=== PATIENT | male | born 1975 | race Caucasian/White ===

== ENCOUNTER 2017-07-10 16:02 | Emergency (ER) | payer SELFPAY ==
[2017-07-10 16:40] LABS: #Basophils 0.1 thou/uL (0.0-0.2); #Lymphocytes 1.2 thou/uL (1.20-3.40); #Monocytes 0.4 thou/uL (0.11-0.59); #Neutrophils 3.2 thou/uL (1.40-6.50); %Basophils 1.1 % (0.0-1.0); %Eosinophils 0.8 % (0.0-10.0); %Lymphocytes 25.2 % (21.0-51.0); %Monocytes 8.3 % (0.0-10.0); Hematocrit 46.1 % (42.0-52.0); Mean Platelet Volume 6.7 fL (7.4-10.4); Red Blood Cell (RBC) Count 4.07 mill/uL (4.70-6.10); White Blood Cell (WBC) Count 4.9 thou/uL (4.8-10.8)
[2017-07-10 16:52] LABS: Acetaminophen Less than 6.0 mcg/mL (10.0-30.0); CK (CPK) 63 U/L (30-200); Salicylate Less than 8.0 mg/dL (15.0-30.0)
[2017-07-10 16:53] LABS: Macrocytosis SLIGHT = 6-15 cells (100X) (0-5/hpf)
[2017-07-10 16:54] LABS: ALT (SGPT) 11 U/L (8-55); AST (SGOT) 18 U/L (5-34); Alkaline Phosphatase 77 U/L (40-150); Anion Gap 17 mmol/L (10-20); BUN (Urea Nitrogen) 8 mg/dL (8.9-20.6); Bilirubin, Total 0.8 mg/dL (0.2-1.2); Calc. Creatinine Clearance 0 mL/min (70-130); Calcium 9.1 mg/dL (7.8-10.44); Carbon Dioxide 22 mmol/L (22-29); Chloride 107 mmol/L (98-107); Estimated GFR-MDRD Greater than 90; Globulin 2.5 g/dL (2.4-3.5); Protein, Total 6.8 g/dL (6.0-8.3)
--- NOTE | 2017-07-10 17:46 | CT ---
CT HEAD NONCONTRAST: Date: 07/10/17 INDICATION: AMS. FINDINGS: No intracranial hemorrhage, mass effect, midline shift, or ventriculomegaly. There is mild mucosal t hickening of the paranasal sinuses. IMPRESSION: No acute intracranial hemorrhage or mass effect. POS: ANETA
[2017-07-10 18:14] LABS: Bilirubin Negative (Negative); Blood, Urine Negative (Negative); Glucose, Urine (Dipstick) Negative (Negative); Ketone, Urine Negative (Negative); Nitrite Negative (Negative); Protein, Urine (Dipstick) Negative (Neg-Trace)
[2017-07-10 18:24] LABS: Amphetamine Not Detected (NotDetected); Methadone Not Detected (NotDetected); Methamphetamine Not Detected (NotDetected)
== END 2017-07-10 19:16 | disposition home or self-care (01) ==
LOC: ERS 16:02
DX: F10.10 Alcohol abuse, uncomplicated (principal); R41.82 Altered mental status, unspecified; F17.210 Nicotine dependence, cigarettes, uncomplicated
CPT/HCPCS: 36415; 36416; 70450; 80053; 80306; 80307; 81003; 82550; 85025; 94760; 96360

== ENCOUNTER 2018-10-30 15:12 | Emergency (ER) | payer OTHER, SELFPAY ==
[2018-10-30] MEDS ORDERED: Acetaminophen 325 MG TAB ONE (17:04)
== END 2018-10-30 17:55 | disposition home or self-care (01) ==
LOC: ERS 15:12
DX: K03.81 Cracked tooth (principal); K02.9 Dental caries, unspecified; Z71.6 Tobacco abuse counseling; F17.210 Nicotine dependence, cigarettes, uncomplicated; G47.30 Sleep apnea, unspecified
CPT/HCPCS: 99406

== ENCOUNTER 2018-11-02 06:24 | Emergency (ER) | payer SELFPAY ==
[2018-11-02] MEDS ORDERED: Ondansetron PF 4 MG/2 ML Vial ONE (07:35)
[2018-11-02 07:40] LABS: #Basophils 0.1 thou/uL (0.0-0.2); #Eosinphils 0.2 thou/uL (0.0-0.7); #Lymphocytes 1.6 thou/uL (1.20-3.40); #Monocytes 0.4 thou/uL (0.11-0.59); #Neutrophils 4.7 thou/uL (1.40-6.50); %Basophils 1.5 % (0.0-1.0); %Eosinophils 2.7 % (0.0-10.0); %Lymphocytes 22.6 % (21.0-51.0); %Monocytes 5.8 % (0.0-10.0); %Neutrophils 67.4 % (42.0-75.0); Hemoglobin 17.3 g/dL (14.0-18.0); Mean Corpuscular HGB CONC 35.2 g/dL (32.0-36.0); Mean Corpuscular Hemoglobin 37.9 pg (27.0-31.0); Mean Platelet Volume 7.1 fL (7.4-10.4); Platelet Count 194 thou/uL (130-400); RBC Distribution Width 12.8 % (11.5-14.5); Red Blood Cell (RBC) Count 4.55 mill/uL (4.70-6.10)
[2018-11-02] MEDS ORDERED: Ampicillin/Sulbactam 3 GM in Sodium Chloride 0.9% 100 ML IVPB SCH (07:45)
[2018-11-02 08:17] LABS: Macrocytosis SLIGHT = 6-15 cells (100X) (0-5/hpf)
[2018-11-02 08:23] LABS: ALT (SGPT) 10 U/L (8-55); AST (SGOT) 26 U/L (5-34); Albumin 3.7 g/dL (3.5-5.0); Alkaline Phosphatase 90 U/L (40-150); Anion Gap 15 mmol/L (10-20); BUN (Urea Nitrogen) 8 mg/dL (8.9-20.6); Bilirubin, Total 0.7 mg/dL (0.2-1.2); Calc. Creatinine Clearance 0 mL/min (70-130); Calcium 9.2 mg/dL (7.8-10.44); Carbon Dioxide 20 mmol/L (22-29); Chloride 107 mmol/L (98-107); Estimated GFR-MDRD Greater than 90; Globulin 2.7 g/dL (2.4-3.5); Glucose 87 mg/dL (70-105); Protein, Total 6.4 g/dL (6.0-8.3); Sodium 138 mmol/L (136-145)
--- NOTE | 2018-11-02 09:07 | CT ---
SOFT TISSUE NECK CT: HISTORY: A 43-year-old with a history of jaw swelling. FINDINGS: Contrast-enhanced CT images of the soft tissue neck obtained. Two-D and 3D reconstruction images per formed on an independent 3D work station. CT images soft tissue neck demonstrate the maxillary, ethmoid, and sphenoid sinuses to be well aerate d. The parotid glands are unremarkable. No significant evidence of deep cervical lymphadenopathy seen. Minimally enlarged right submandibular lymph nodes are seen. The pharyngeal mucosal spaces are unremarkable. Some minimal edema is seen in the submandibular and sublingual spaces possibly representing mild hartley ges of cellulitis. There is an area of lucency involving the right 2nd mandibular molar possibly representing an area of dental caries. Correlate with clinical exam. IMPRESSION: Minimal submandibular and sublingual soft tissue edema possibly representing cellulitis. No evidence of facial abscess is seen. POS: REINALDO
[2018-11-02] MEDS ORDERED: ISOVUE-370 76%-LOCM 1 ML ONE (12:55)
== END 2018-11-02 09:35 | disposition home or self-care (01) ==
LOC: ERS 06:24
DX: K04.7 Periapical abscess without sinus (principal); R22.0 Localized swelling, mass and lump, head; F17.210 Nicotine dependence, cigarettes, uncomplicated; Z79.899 Other long term (current) drug therapy
CPT/HCPCS: 36415; 70492; 80053; 85025; 96361; 96365; 96375; J0295; J2405; J7050; Q9966

== ENCOUNTER 2019-01-12 14:04 | Emergency (ER) | payer SELFPAY ==
--- NOTE | 2019-01-12 14:32 | CT ---
Exam: Head CT without contrast HISTORY: Altered mental status. Unresponsive patient. COMPARISON: 07/10/2017 FINDINGS: Hemorrhage: No intraparenchymal hemorrhage or extra-axial hematoma. Brain parenchyma: Cortical cali-white matter differentiation is preserved. No mass effect or midline shift. Basilar cisterns are patent Ventricular system: Ventricles and sulci are patent and symmetric. Calvarium: Intact. Sinuses and mastoid air cells: Adequate aeration. IMPRESSION: No acute intracranial process.
--- NOTE | 2019-01-12 14:46 | RAD ---
PORTABLE CHEST 1 VIEW: Date: 01/12/19 Time: 1411 hours HISTORY: Altered mental status. FINDINGS: Comparison made with exam of 12/15/15. The heart size is normal. The lungs are well expanded without focal areas of consolidation, pneumotho races, or pleural effusions. IMPRESSION: No radiographic evidence of acute cardiopulmonary process. POS: TPC
[2019-01-12 14:49] LABS: #Basophils 0.1 thou/uL (0.0-0.2); #Lymphocytes 1.1 thou/uL (1.20-3.40); #Monocytes 0.4 thou/uL (0.11-0.59); #Neutrophils 4.3 thou/uL (1.40-6.50); %Basophils 0.9 % (0.0-1.0); %Eosinophils 0.5 % (0.0-10.0); %Lymphocytes 19.1 % (21.0-51.0); %Monocytes 7.4 % (0.0-10.0); %Neutrophils 72.1 % (42.0-75.0); Hemoglobin 16.3 g/dL (14.0-18.0); Mean Corpuscular HGB CONC 34.1 g/dL (32.0-36.0); Mean Corpuscular Hemoglobin 37.2 pg (27.0-31.0); Mean Platelet Volume 6.9 fL (7.4-10.4); Platelet Count 221 thou/uL (130-400); RBC Distribution Width 14.3 % (11.5-14.5); Red Blood Cell (RBC) Count 4.38 mill/uL (4.70-6.10)
[2019-01-12 15:03] LABS: MDiff Complete? YES; Macrocytosis SLIGHT = 6-15 cells (100X) (0-5/hpf); Platelet Morphology Comment Appears Adequate
[2019-01-12 15:05] LABS: ALT (SGPT) 8 U/L (8-55); AST (SGOT) 14 U/L (5-34); Acetaminophen Less than 6.0 mcg/mL (10.0-30.0); Alcohol 14 mg/dL (Less than 10); Alkaline Phosphatase 67 U/L (40-150); Anion Gap 15 mmol/L (10-20); BUN (Urea Nitrogen) 6 mg/dL (8.9-20.6); Bilirubin, Total 0.6 mg/dL (0.2-1.2); Calc. Creatinine Clearance 0 mL/min (70-130); Calcium 9.1 mg/dL (7.8-10.44); Carbon Dioxide 24 mmol/L (22-29); Chloride 105 mmol/L (98-107); Estimated GFR-MDRD Greater than 90; Globulin 2.2 g/dL (2.4-3.5); Glucose 107 mg/dL (70-105); Potassium 3.8 mmol/L (3.5-5.1); Protein, Total 6.2 g/dL (6.0-8.3); Salicylate Less than 8.0 mg/dL (15.0-30.0); Sodium 140 mmol/L (136-145)
[2019-01-12 15:19] LABS: Amphetamine Not Detected (NotDetected); Barbiturates Screen Not Detected (NotDetected); Benzodiazepine Screen Not Detected (NotDetected); Cocaine Metabolite Screen Not Detected (NotDetected); Medtox Control Line Valid? VALID (VALID); Medtox Reader # READER 4; Methadone Not Detected (NotDetected); Methamphetamine Not Detected (NotDetected); Opiate Screen Not Detected (NotDetected); Oxycodone Screen Not Detected (NotDetected); Phencyclidine (PCP) Not Detected (NotDetected); THC/Cannabinoid Screen Detected (NotDetected); Tricyclic Screen Not Detected (NotDetected)
[2019-01-12] MEDS ORDERED: Naloxone HCl 0.4 mg/ml Vial ONE (16:04)
== END 2019-01-12 19:39 | disposition home or self-care (01) ==
LOC: ERS 14:04
DX: F12.10 Cannabis abuse, uncomplicated (principal); F17.210 Nicotine dependence, cigarettes, uncomplicated
CPT/HCPCS: 36415; 51701; 70450; 71045; 80053; 80306; 80307; 85025; 93005; 96374; J2310

== ENCOUNTER 2019-03-26 18:41 | Emergency (ER) | payer SELFPAY | END 2019-03-26 19:25 | disposition left against medical advice (07) | LOC: ERS 18:41 | DX: S00.83XA Contusion of other part of head, initial encounter (principal); Y04.0XXA Assault by unarmed brawl or fight, initial encounter | CPT/HCPCS: 99283 ==

== ENCOUNTER 2019-11-08 03:07 | Emergency (ER) | payer SELFPAY ==
[2019-11-08] MEDS ORDERED: Ketorolac Tromethamine 30 MG/ML VIAL ONE (04:49)
== END 2019-11-08 05:05 | disposition home or self-care (01) ==
LOC: ERS 03:07
DX: H66.91 Otitis media, unspecified, right ear (principal); F17.210 Nicotine dependence, cigarettes, uncomplicated
CPT/HCPCS: 96372; 99282; J1885

== ENCOUNTER 2020-03-23 11:51 | Emergency (ER) | payer OTHER, SELFPAY ==
[2020-03-23] MEDS ORDERED: Lorazepam 2 MG/ML VIAL ONE (12:20)
[2020-03-23 12:47] LABS: #Lymphocytes 0.7 thou/uL (1.20-3.40); #Monocytes 0.4 thou/uL (0.11-0.59); #Neutrophils 4.4 thou/uL (1.40-6.50); %Basophils 0.6 % (0.0-1.0); %Eosinophils 0.8 % (0.0-10.0); %Lymphocytes 13.1 % (21.0-51.0); %Monocytes 7.4 % (0.0-10.0); %Neutrophils 78.1 % (42.0-75.0); Hemoglobin 15.3 g/dL (14.0-18.0); Mean Corpuscular HGB CONC 34.5 g/dL (32.0-36.0); Mean Corpuscular Hemoglobin 40.9 pg (27.0-31.0); Platelet Count 153 thou/uL (130-400); RBC Distribution Width 12.6 % (11.5-14.5); Red Blood Cell (RBC) Count 3.74 mill/uL (4.70-6.10); White Blood Cell (WBC) Count 5.6 thou/uL (4.8-10.8)
[2020-03-23 13:06] LABS: Anisocytosis SLIGHT = 6-15 cells (100X) (0-5/hpf); MDiff Complete? YES; Macrocytosis MODERATE=16-30 cells (100X) (0-5/hpf); Platelet Morphology Comment Appears Adequate; Polychromasia SLIGHT = 2-3 cells (100X) (0-2/hpf)
[2020-03-23 13:10] LABS: ALT (SGPT) 23 U/L (8-55); AST (SGOT) 44 U/L (5-34); Alcohol Less than 10 mg/dL (Less than 10); Alkaline Phosphatase 75 U/L (40-110); Anion Gap 14 mmol/L (10-20); BUN (Urea Nitrogen) 9 mg/dL (8.9-20.6); Calc. Creatinine Clearance 0 mL/min (70-130); Calcium 9.4 mg/dL (7.8-10.44); Carbon Dioxide 28 mmol/L (22-29); Chloride 101 mmol/L (98-107); Estimated GFR-MDRD 84; Globulin 2.3 g/dL (2.4-3.5); Glucose 123 mg/dL (70-105); Potassium 3.3 mmol/L (3.5-5.1); Protein, Total 6.3 g/dL (6.0-8.3); Sodium 140 mmol/L (136-145)
[2020-03-24] MEDS ORDERED: Multivitamins, Adult 10 ML, Thiamine HCl 100 MG, Folic Acid 1 MG in Dextrose 5 %-0.45 %... IV SCH (09:00)
[2020-03-24 16:08] LABS: SARS-CoV-2 MS2 Positive; SARS-CoV-2 N Gene Negative; SARS-CoV-2 S Gene Negative; SARS-CoV-2 orf1ab Negative
== END 2020-03-23 14:44 | disposition home or self-care (01) ==
LOC: ERS 11:51
DX: F10.239 Alcohol dependence with withdrawal, unspecified (principal); F17.210 Nicotine dependence, cigarettes, uncomplicated; Z20.828 Contact with and (suspected) exposure to other viral communicable diseases; Y90.0 Blood alcohol level of less than 20 mg/100 ml; Z79.899 Other long term (current) drug therapy
CPT/HCPCS: 80053; 80307; 82140; 85025; 87635; 93005; 96361; 96365; J2060; U0003

== ENCOUNTER 2021-05-31 19:14 | Inpatient (IN) | payer SELFPAY ==
[~2021-05-31 19:14] MED LIST: Iopamidol-370 76% 500 ML 1 ML ONE
[2021-05-31] MEDS ORDERED: Piperacillin/Tazobactam 3.375 GM VIAL ONE (20:23)
[2021-05-31] MEDS ORDERED: Ketorolac Tromethamine 30 MG/ML VIAL ONE (20:23)
[2021-05-31] MEDS ORDERED: Clindamycin/D5W 900 mg/50 ml Premix Bag ONE (20:40)
[2021-05-31 20:46] LABS: Hemoglobin 11.5 g/dL (14.0-18.0); Mean Corpuscular HGB CONC 34.9 g/dL (32.0-36.0); Mean Corpuscular Hemoglobin 42.9 pg (27.0-31.0); Mean Platelet Volume 9.9 fL (7.4-10.4); Platelet Count 157 thou/uL (130-400); RBC Distribution Width 13.8 % (11.5-14.5); Red Blood Cell (RBC) Count 2.69 mill/uL (4.70-6.10); White Blood Cell (WBC) Count 33.3 thou/uL (4.8-10.8)
[2021-05-31 21:02] LABS: ALT (SGPT) 32 U/L (8-55); AST (SGOT) 38 U/L (5-34); Albumin 2.5 g/dL (3.5-5.0); Alkaline Phosphatase 208 U/L (40-110); Anion Gap 14 mmol/L (10-20); BUN (Urea Nitrogen) 22 mg/dL (8.9-20.6); Bilirubin, Total 2.3 mg/dL (0.2-1.2); CRP (Inflammatory) 29.62 mg/dL (= or < 0.5); Calc. Creatinine Clearance 0 mL/min (70-130); Calcium 8.4 mg/dL (7.8-10.44); Carbon Dioxide 29 mmol/L (22-29); Chloride 98 mmol/L (98-107); Globulin 2.7 g/dL (2.4-3.5); Glucose 119 mg/dL (70-105); Protein, Total 5.2 g/dL (6.0-8.3); Sodium 139 mmol/L (136-145)
[2021-05-31 21:03] LABS: Band 6 % (5-11); Lymphocytes 3 % (21-51); MDiff Complete? YES; Macrocytosis MODERATE=16-30 cells (100X) (0-5/hpf); Monocytes 1 % (0-10); Neutrophil 90 % (42-75); Stomatocytes SLIGHT = 2-5 cells (100X) (0-1/hpf)
[2021-05-31 21:08] LABS: Potassium 2.4 mmol/L (3.5-5.1)
[2021-05-31 21:16] LABS: INR-International Normal Ratio 1.3; Prothrombin Time 16.4 sec (12.0-14.7)
[2021-05-31 21:17] LABS: PTT 46.5 sec (22.9-36.1)
[2021-05-31] MEDS ORDERED: Bacitracin Zinc Ointment 30 gm TUBE ONE (21:35)
[2021-05-31] MEDS ORDERED: Lidocaine 1% w/Epinephrine 1:100K 30 ML VIAL ONE (21:35)
[2021-05-31] MEDS ORDERED: Chlorhexidine Gluconate 15 ML UDCUP SSP ONE (21:35)
[2021-05-31] MEDS ORDERED: Lidocaine Viscous Sol 2% 15 ml UD Cup ONE (21:46)
[2021-05-31 21:53] LABS: SARS-CoV-2 NAA Rapid Test Not Detected (NotDetected)
[2021-05-31] MEDS ORDERED: Midazolam HCl 2 mg/2 ml Vial ONE (21:53)
[2021-05-31] MEDS ORDERED: Fentanyl 100 MCG/2 ML VIAL ONE (21:53)
[2021-05-31] MEDS ORDERED: Lidocaine 1% PF 5 ML VIAL ONE ×2 (21:56→22:24)
[2021-05-31] MEDS ORDERED: Lidocaine 4% Topical Sol 50 ML BOT ONE (21:59)
[2021-05-31] MEDS ORDERED: Ketamine 50 MG/ML (10ML VIAL) ONE (22:01)
[2021-05-31] MEDS ORDERED: Lidocaine 2% Jelly 5 ML TUBE ONE (22:04)
[2021-05-31] MEDS ORDERED: AFRIN NASAL MIST 15 ML BOT ONE (22:07)
[2021-05-31] MEDS ORDERED: Lidocaine 4% PF 5 ML AMP NEB SCH (22:15)
[2021-05-31] MEDS ORDERED: PROPOFOL 200 MG/20 ML VIAL ONE (22:24)
[2021-05-31] MEDS ORDERED: Dexamethasone 20 MG/5 ML VIAL ONE (22:24)
[2021-05-31] MEDS ORDERED: Rocuronium Bromide 10 MG/ML (10ML VIAL) ONE (22:24)
[2021-05-31] MEDS ORDERED: Ventilator Sedation Protocol 1 EACH FS ONE (23:59)
[2021-06-01] MEDS ORDERED: Fentanyl CADD 100 ML IV SCH (00:15)
[2021-06-01] MEDS ORDERED: Morphine 2 MG/ML VIAL SLOW IVP PRN ×2 (00:15→21:57)
[2021-06-01] MEDS ORDERED: Propofol BOLUS 1,000 MG/100 ML VIAL IV PRN (00:15)
[2021-06-01] MEDS ORDERED: Propofol 1,000 MG/100 ML VIAL IV PRN (00:15)
[2021-06-01] MEDS ORDERED: Norepinephrine 8 MG/0.9% NS 250 ML IVPB SCH (00:15)
[2021-06-01] MEDS ORDERED: Lorazepam 2 MG/ML VIAL SLOW IVP PRN (00:15)
[2021-06-01] MEDS ORDERED: Fentanyl BOLUS 250 ML IVPB PRN (00:15)
[2021-06-01] MEDS ORDERED: DISCONTINUE PREVIOUS NARCOTIC PAIN MEDICATIONS AND BENZODIAZEPINES FS SCH (00:15)
[2021-06-01] MEDS: Lactated Ringer's 1,000 ML IV SCH ×3 (00:51→22:12)
[2021-06-01] MEDS ORDERED: MEROPENEM 1 GM/50 ML 1 GM in Premix Bag 1 BAG IVPB SCH (01:00)
[2021-06-01 01:02] LABS: Mean Corpuscular HGB CONC 34.7 g/dL (32.0-36.0); Mean Corpuscular Hemoglobin 42.8 pg (27.0-31.0); Mean Platelet Volume 9.7 fL (7.4-10.4); Platelet Count 143 thou/uL (130-400); RBC Distribution Width 14.1 % (11.5-14.5); White Blood Cell (WBC) Count 27.9 thou/uL (4.8-10.8)
[2021-06-01 01:20] LABS: ALT (SGPT) 30 U/L (8-55); AST (SGOT) 33 U/L (5-34); Albumin 2.5 g/dL (3.5-5.0); Alkaline Phosphatase 226 U/L (40-110); Anion Gap 13 mmol/L (10-20); BUN (Urea Nitrogen) 21 mg/dL (8.9-20.6); Bilirubin, Total 2.5 mg/dL (0.2-1.2); Calc. Creatinine Clearance 0 mL/min (70-130); Calcium 7.7 mg/dL (7.8-10.44); Carbon Dioxide 25 mmol/L (22-29); Chloride 102 mmol/L (98-107); Globulin 2.4 g/dL (2.4-3.5); Glucose 128 mg/dL (70-105); Protein, Total 4.9 g/dL (6.0-8.3); Sodium 138 mmol/L (136-145)
[2021-06-01 01:22] LABS: Band 20 % (5-11); Lymphocytes 3 % (21-51); MDiff Complete? YES; Macrocytosis MODERATE=16-30 cells (100X) (0-5/hpf); Monocytes 1 % (0-10); Neutrophil 76 % (42-75); Stomatocytes SLIGHT = 2-5 cells (100X) (0-1/hpf); Vacuoles SLIGHT
[2021-06-01 01:24] LABS: Potassium 2.4 mmol/L (3.5-5.1)
[2021-06-01] MEDS ORDERED: Potassium Phosphate 30 MMOL in Sodium Chloride 0.9% 500 ML IVPB SCH (01:30)
[2021-06-01] MEDS ORDERED: Fentanyl CADD 100 ML ONE (01:32)
[2021-06-01] MEDS ORDERED: VANCOMYCIN 1.75 GM/350 ML BAG 1.75 GM in Premix Bag 1 BAG IVPB SCH (02:30)
[2021-06-01 07:05] LABS: Actual Bicarbonate (HCO3a) 24.5 mEq/L (22-28); Base Excess (BEa) 1.8 mEq/L (-2.0 to +3.0); CO2 Tension 31.9 mmHg (35.0-45.0); Calcium, Ionized (arterial) 0.96 mmol/L (1.12-1.30); Carboxyhemoglobin (COHb) 0.3 gm% (0.0-3.0); Hemoglobin (Hb) 10.6 g/dL (14.0-18.0); O2 Tension (PaO2), arterial 99.6 mmHg (80.0-100.0); Potassium - ABG Lab 2.87 mmol/L (3.70-5.30)
[2021-06-01 07:16] LABS: Puncture Site RBA
[2021-06-01 07:17] LABS: ALV-art Gradient 145.725 mmHg (0-20)
[2021-06-01] MEDS ORDERED: Bacitracin 1 PK TOP PRN (07:53)
[2021-06-01] MEDS ORDERED: Vancomycin HCl 1 GM in Sodium Chloride 0.9% 250 ML 300 ML IVPB SCH (09:00)
[2021-06-01] MEDS ORDERED: Cefepime 2 GM in Sodium Chloride 0.9% 100 ML IVPB SCH (09:00)
[2021-06-01] MEDS ORDERED: Heparin 1,000 UNITS/ML VIAL ONE (09:14)
[2021-06-01] MEDS ORDERED: Diazepam 5 MG TAB PO PRN (09:39)
[2021-06-01] MEDS ORDERED: Thiamine HCl 200 MG/2 ML VIAL IM SCH (09:45)
[2021-06-01] MEDS ORDERED: Magnesium 2 GM/50 ML 2 GM in Premix Bag 1 BAG IVPB SCH (09:45)
[2021-06-01] MEDS: Potassium Chloride 20 MEQ in Premix Bag 1 BAG IVPB SCH ×2 (09:58→11:30)
[2021-06-01] MEDS ORDERED: Clindamycin/D5W 600 MG in Premix Bag 1 BAG IVPB SCH (10:00)
[2021-06-01 10:43] LABS: Bacteria/HPF None Seen HPF (None Seen); Bilirubin Negative (Negative); Blood, Urine 3+ (Negative); Clarity Extra Turbid (Clear); Glucose, Urine (Dipstick) Normal (Negative); Ketone, Urine Trace mg/dL (Negative); Leukocyte Negative Leu/uL (Negative); Nitrite Negative (Negative); Protein, Urine (Dipstick) 30 mg/dL (Neg-Trace); RBC/HPF 0-3 HPF (0-3); Specific Gravity, Urine 1.043 (1.002-1.036); Squamous Epithelial None Seen HPF (0-3); WBC/HPF None Seen HPF (0-3)
[2021-06-01 10:46] LABS: Urine Culture Reflex No No
[2021-06-01] MEDS: MEROPENEM 1 GM/50 ML 1 GM in Premix Bag 1 BAG IVPB SCH ×2 (11:23→17:55)
[2021-06-01] MEDS ORDERED: Vancomycin 1 GM in Premix Bag 1 BAG IVPB SCH (12:00)
[2021-06-01] MEDS ORDERED: Diazepam 5 MG TAB PO SCH (13:30)
[2021-06-01] MEDS ORDERED: Morphine 4 MG/ML VIAL SLOW IVP PRN (21:57)
[2021-06-01] MEDS: Diazepam 5 MG TAB PO SCH (22:15)
[2021-06-01] MEDS: Morphine 2 MG/ML VIAL SLOW IVP PRN (22:39)
[2021-06-02] MEDS: MEROPENEM 1 GM/50 ML 1 GM in Premix Bag 1 BAG IVPB SCH ×3 (01:35→17:13)
[2021-06-02] MEDS ORDERED: Diazepam 5 MG TAB PO PRN (04:00)
[2021-06-02] MEDS: Morphine 2 MG/ML VIAL SLOW IVP PRN ×4 (05:51→20:50)
[2021-06-02] MEDS: Multivitamin W/ Minerals 1 TAB PO SCH (09:11)
[2021-06-02] MEDS: Lactated Ringer's 1,000 ML IV SCH (09:11)
[2021-06-02] MEDS: Thiamine 100 MG TAB PO SCH (09:11)
[2021-06-02] MEDS: Diazepam 5 MG TAB PO SCH ×2 (09:11→20:50)
[2021-06-02] MEDS: Folic Acid 1 MG TAB PO SCH (09:11)
[2021-06-02 10:14] LABS: Band 36 % (5-11); Hemoglobin 10.1 g/dL (14.0-18.0); Lymphocytes 6 % (21-51); MDiff Complete? YES; Mean Corpuscular HGB CONC 33.4 g/dL (32.0-36.0); Mean Corpuscular Hemoglobin 41.9 pg (27.0-31.0); Mean Platelet Volume 10.4 fL (7.4-10.4); Metamyelocyte 1 % (0-0); Neutrophil 56 % (42-75); Platelet Count 211 thou/uL (130-400); RBC Distribution Width 14.6 % (11.5-14.5); Reactive Lymphocytes 1 % (0-10); White Blood Cell (WBC) Count 24.2 thou/uL (4.8-10.8)
[2021-06-02 11:45] LABS: Band 17 % (5-11); Hemoglobin 10.1 g/dL (14.0-18.0); Lymphocytes 3 % (21-51); MDiff Complete? YES; Mean Corpuscular HGB CONC 33.6 g/dL (32.0-36.0); Mean Corpuscular Hemoglobin 42.1 pg (27.0-31.0); Mean Platelet Volume 10.3 fL (7.4-10.4); Neutrophil 80 % (42-75); Platelet Count 215 thou/uL (130-400); RBC Distribution Width 14.6 % (11.5-14.5); White Blood Cell (WBC) Count 22.6 thou/uL (4.8-10.8)
[2021-06-02 11:52] LABS: Anion Gap 10 mmol/L (10-20); BUN (Urea Nitrogen) 18 mg/dL (8.9-20.6); Calc. Creatinine Clearance 169 mL/min (70-130); Calcium 7.7 mg/dL (7.8-10.44); Carbon Dioxide 29 mmol/L (22-29); Chloride 107 mmol/L (98-107); Glucose 109 mg/dL (70-105); Magnesium 2.2 mg/dL (1.6-2.6); Potassium 3.5 mmol/L (3.5-5.1); Sodium 142 mmol/L (136-145)
[2021-06-02] MEDS ORDERED: Multivitamins, Adult 10 ML, Folic Acid 1 MG, Thiamine HCl 100 MG in Dextrose 5 %-0.45 %... IV SCH (15:00)
[2021-06-02] MEDS ORDERED: Potassium Chloride 20 MEQ in Premix Bag 1 BAG IVPB SCH ×2 (15:00→17:15)
[2021-06-03] MEDS: Lactated Ringer's 1,000 ML IV SCH ×4 (00:58→22:05)
[2021-06-03] MEDS: Diazepam 5 MG TAB PO SCH ×3 (01:01→20:51)
[2021-06-03] MEDS: Sodium Chloride 0.65% Nasal 44 ML BOT EA NARE PRN ×2 (02:07→10:13)
[2021-06-03] MEDS: MEROPENEM 1 GM/50 ML 1 GM in Premix Bag 1 BAG IVPB SCH ×3 (02:07→17:35)
[2021-06-03] MEDS: Morphine 2 MG/ML VIAL SLOW IVP PRN ×4 (02:30→20:45)
[2021-06-03 09:06] LABS: Band 9 % (5-11); Hemoglobin 9.3 g/dL (14.0-18.0); Lymphocytes 7 % (21-51); MDiff Complete? YES; Mean Corpuscular HGB CONC 33.8 g/dL (32.0-36.0); Mean Platelet Volume 9.6 fL (7.4-10.4); Monocytes 2 % (0-10); Myelocyte 1 % (0-0); Neutrophil 81 % (42-75); Platelet Count 276 thou/uL (130-400); RBC Distribution Width 14.7 % (11.5-14.5); Red Blood Cell (RBC) Count 2.22 mill/uL (4.70-6.10); White Blood Cell (WBC) Count 17.6 thou/uL (4.8-10.8)
[2021-06-03 09:07] LABS: Anion Gap 12 mmol/L (10-20); BUN (Urea Nitrogen) 13 mg/dL (8.9-20.6); Calc. Creatinine Clearance 181 mL/min (70-130); Calcium 7.6 mg/dL (7.8-10.44); Carbon Dioxide 28 mmol/L (22-29); Chloride 107 mmol/L (98-107); Glucose 126 mg/dL (70-105); Potassium 3.5 mmol/L (3.5-5.1); Sodium 143 mmol/L (136-145)
[2021-06-03] MEDS: Folic Acid 1 MG TAB PO SCH (09:51)
[2021-06-03] MEDS: Thiamine 100 MG TAB PO SCH (09:52)
[2021-06-03] MEDS: Multivitamin W/ Minerals 1 TAB PO SCH (09:52)
[2021-06-03] MEDS: Thiamine HCl 200 MG/2 ML VIAL SLOW IVP SCH (15:49)
[2021-06-04] MEDS: MEROPENEM 1 GM/50 ML 1 GM in Premix Bag 1 BAG IVPB SCH ×3 (01:50→18:22)
[2021-06-04] MEDS ORDERED: Fluticasone Propionate Nasal Spray 16 gm Bottle NASAL PRN (04:10)
[2021-06-04] MEDS ORDERED: Azelastine 137 MCG/Spray 30 ML NS PRN (04:27)
[2021-06-04 06:49] LABS: Hemoglobin 9.2 g/dL (14.0-18.0); Mean Corpuscular HGB CONC 33.2 g/dL (32.0-36.0); Mean Corpuscular Hemoglobin 41.8 pg (27.0-31.0); Mean Platelet Volume 9.2 fL (7.4-10.4); Platelet Count 366 thou/uL (130-400); RBC Distribution Width 14.3 % (11.5-14.5); White Blood Cell (WBC) Count 17.6 thou/uL (4.8-10.8)
[2021-06-04 07:04] LABS: Anion Gap 18 mmol/L (10-20); BUN (Urea Nitrogen) 12 mg/dL (8.9-20.6); Calc. Creatinine Clearance 167 mL/min (70-130); Calcium 7.9 mg/dL (7.8-10.44); Carbon Dioxide 22 mmol/L (22-29); Chloride 108 mmol/L (98-107); Glucose 92 mg/dL (70-105); Potassium 3.6 mmol/L (3.5-5.1); Sodium 144 mmol/L (136-145)
[2021-06-04 08:27] LABS: Band 29 % (5-11); Lymphocytes 4 % (21-51); MDiff Complete? YES; Macrocytosis MODERATE=16-30 cells (100X) (0-5/hpf); Monocytes 6 % (0-10); Neutrophil 61 % (42-75); Platelet Morphology Comment Appears Adequate; Polychromasia SLIGHT = 2-3 cells (100X) (0-2/hpf)
[2021-06-04] MEDS: Folic Acid 1 MG TAB PO SCH (09:36)
[2021-06-04] MEDS: Multivitamin W/ Minerals 1 TAB PO SCH (09:36)
[2021-06-04] MEDS: Diazepam 5 MG TAB PO SCH ×2 (09:36→20:35)
[2021-06-04] MEDS: Thiamine 100 MG TAB PO SCH (09:36)
[2021-06-04] MEDS: Lactated Ringer's 1,000 ML IV SCH ×2 (09:37→18:22)
[2021-06-04] MEDS: Morphine 2 MG/ML VIAL SLOW IVP PRN ×4 (09:43→23:15)
[2021-06-04] MEDS ORDERED: Iopamidol-370 76% 500 ML 1 ML ONE (12:24)
[2021-06-04] MEDS: Thiamine HCl 200 MG/2 ML VIAL SLOW IVP SCH (14:37)
[2021-06-04] MEDS: Vancomycin 1.5 GRAM/300 ML BAG 1.5 GM in Premix Bag 1 BAG IVPB SCH (19:03)
[2021-06-05] MEDS: Vancomycin 1.5 GRAM/300 ML BAG 1.5 GM in Premix Bag 1 BAG IVPB SCH ×2 (01:16→09:20)
[2021-06-05] MEDS: MEROPENEM 1 GM/50 ML 1 GM in Premix Bag 1 BAG IVPB SCH ×2 (01:16→09:20)
[2021-06-05] MEDS: Morphine 2 MG/ML VIAL SLOW IVP PRN ×2 (03:49→09:19)
[2021-06-05] MEDS: Lactated Ringer's 1,000 ML IV SCH ×2 (04:58→09:24)
[2021-06-05 05:42] LABS: Hemoglobin 10.5 g/dL (14.0-18.0); Mean Corpuscular HGB CONC 34.4 g/dL (32.0-36.0); Mean Corpuscular Hemoglobin 42.9 pg (27.0-31.0); Mean Platelet Volume 9.1 fL (7.4-10.4); Platelet Count 456 thou/uL (130-400); RBC Distribution Width 14.5 % (11.5-14.5); Red Blood Cell (RBC) Count 2.45 mill/uL (4.70-6.10); White Blood Cell (WBC) Count 14.1 thou/uL (4.8-10.8)
[2021-06-05 05:53] LABS: Anion Gap 13 mmol/L (10-20); BUN (Urea Nitrogen) 11 mg/dL (8.9-20.6); Calc. Creatinine Clearance 154 mL/min (70-130); Calcium 8.4 mg/dL (7.8-10.44); Carbon Dioxide 29 mmol/L (22-29); Chloride 107 mmol/L (98-107); Glucose 91 mg/dL (70-105); Potassium 3.8 mmol/L (3.5-5.1); Sodium 145 mmol/L (136-145)
[2021-06-05 06:24] LABS: Band 18 % (5-11); Large Platelets SLIGHT; Lymphocytes 9 % (21-51); MDiff Complete? YES; Macrocytosis SLIGHT = 6-15 cells (100X) (0-5/hpf); Monocytes 7 % (0-10); Neutrophil 65 % (42-75); Platelet Morphology Comment Appears Increased; Polychromasia SLIGHT = 2-3 cells (100X) (0-2/hpf); Stomatocytes MODERATE= 6-15 cells (100X) (0-1/hpf)
[2021-06-05] MEDS: Folic Acid 1 MG TAB PO SCH (08:42)
[2021-06-05] MEDS: Thiamine 100 MG TAB PO SCH (08:42)
[2021-06-05] MEDS: Diazepam 5 MG TAB PO SCH (08:42)
[2021-06-05] MEDS: Multivitamin W/ Minerals 1 TAB PO SCH (08:42)
[2021-06-05] MEDS ORDERED: Lidocaine 2% Jelly 5 ML TUBE ONE (10:24)
[2021-06-05] MEDS ORDERED: Lidocaine 4% Topical Sol 50 ML BOT ONE (10:24)
[2021-06-05] MEDS ORDERED: AFRIN NASAL MIST 15 ML BOT ONE (10:25)
[2021-06-05] MEDS ORDERED: Ketamine 50 MG/ML (10ML VIAL) ONE (10:52)
[2021-06-05] MEDS ORDERED: Fentanyl 250 MCG/5 ML VIAL ONE (10:52)
[2021-06-05] MEDS ORDERED: Midazolam HCl 5 mg/5 ml Vial ONE (10:52)
[2021-06-05] MEDS ORDERED: Dexmedetomidine 200 MCG/2 ML VIAL ONE (11:04)
[2021-06-05] MEDS ORDERED: Hydrocortisone 1% Cream 30 GM TUBE ONE (11:08)
[2021-06-05] MEDS ORDERED: Chlorhexidine Gluconate 15 ML UDCUP SSP ONE (11:08)
[2021-06-05] MEDS ORDERED: Lidocaine 1% w/Epinephrine 1:100K 30 ML VIAL ONE (11:08)
[2021-06-05] MEDS ORDERED: Lidocaine 4% PF 5 ML AMP NEB SCH (11:15)
[2021-06-05] MEDS ORDERED: PROPOFOL 200 MG/20 ML VIAL ONE (11:30)
[2021-06-05] MEDS ORDERED: Dexamethasone 20 MG/5 ML VIAL ONE (11:30)
[2021-06-05] MEDS ORDERED: Rocuronium Bromide 10 MG/ML (10ML VIAL) ONE (11:30)
[2021-06-05] MEDS ORDERED: Fentanyl 100 MCG/2 ML VIAL ONE (11:32)
[2021-06-05] MEDS ORDERED: Neomycin-Polymyxin 1 ML AMP ONE (12:34)
[2021-06-05] MEDS ORDERED: Propofol 1,000 MG/100 ML VIAL IV ONE ×3 (13:55→21:31)
[2021-06-05] MEDS ORDERED: Morphine 2 MG/ML VIAL SLOW IVP PRN (14:15)
[2021-06-05] MEDS ORDERED: Fentanyl BOLUS 250 ML IVPB PRN (14:15)
[2021-06-05] MEDS ORDERED: fentaNYL Citrate/PF 2,000 MCG in Sodium Chloride 0.9% 60 ML IV SCH (14:15)
[2021-06-05] MEDS ORDERED: Propofol BOLUS 1,000 MG/100 ML VIAL IV PRN (14:15)
[2021-06-05] MEDS ORDERED: DISCONTINUE PREVIOUS NARCOTIC PAIN MEDICATIONS AND BENZODIAZEPINES FS SCH (14:15)
[2021-06-05 14:29] LABS: Actual Bicarbonate (HCO3a) 27.8 mEq/L (22-28); Base Excess (BEa) 4.9 mEq/L (-2.0 to +3.0); CO2 Tension 34.4 mmHg (35.0-45.0); Calcium, Ionized (arterial) 1.13 mmol/L (1.12-1.30); Carboxyhemoglobin (COHb) 0.1 gm% (0.0-3.0); Hemoglobin (Hb) 9.2 g/dL (14.0-18.0); O2 Tension (PaO2), arterial 106.2 mmHg (80.0-100.0); Potassium - ABG Lab 3.36 mmol/L (3.70-5.30); pH, Arterial 7.53 (7.35-7.45)
[2021-06-05 14:30] LABS: Puncture Site RRA
[2021-06-05] MEDS ORDERED: Dexamethasone 10 MG in Sodium Chloride 0.9% 50 ML IVPB SCH (14:40)
[2021-06-05] MEDS ORDERED: Dexamethasone 4 mg/ml Vial SLOW IVP SCH (15:15)
[2021-06-05] MEDS: Thiamine HCl 200 MG/2 ML VIAL SLOW IVP SCH (16:21)
[2021-06-05] MEDS: Ampicillin/Sulbactam 3 GM in Sodium Chloride 0.9% 100 ML IVPB SCH (21:00)
[2021-06-05] MEDS: Famotidine/PF 20 mg/2ml Vial SLOW IVP SCH (21:00)
[2021-06-05 21:27] LABS: Vancomycin, Trough 13.4 ug/mL
[2021-06-05] MEDS ORDERED: Famotidine/PF 20 mg/2ml Vial ONE (22:49)
[2021-06-06] MEDS: Lactated Ringer's 1,000 ML IV SCH ×3 (01:46→22:00)
[2021-06-06] MEDS ORDERED: Propofol 1,000 MG/100 ML VIAL IV ONE ×2 (07:10→14:30)
[2021-06-06 07:19] LABS: Hemoglobin 9.5 g/dL (14.0-18.0); Mean Platelet Volume 9.5 fL (7.4-10.4); Platelet Count 544 thou/uL (130-400); RBC Distribution Width 14.6 % (11.5-14.5); Red Blood Cell (RBC) Count 2.26 mill/uL (4.70-6.10); White Blood Cell (WBC) Count 10.8 thou/uL (4.8-10.8)
[2021-06-06 07:22] LABS: Anion Gap 16 mmol/L (10-20); BUN (Urea Nitrogen) 16 mg/dL (8.9-20.6); Calc. Creatinine Clearance 146 mL/min (70-130); Calcium 7.8 mg/dL (7.8-10.44); Carbon Dioxide 25 mmol/L (22-29); Chloride 107 mmol/L (98-107); Glucose 144 mg/dL (70-105); Potassium 4.4 mmol/L (3.5-5.1); Sodium 144 mmol/L (136-145)
[2021-06-06 07:45] LABS: Actual Bicarbonate (HCO3a) 26.4 mEq/L (22-28); Analyzer IN Cardio OR; Base Excess (BEa) 2.2 mEq/L (-2.0 to +3.0); CO2 Tension 39.6 mmHg (35.0-45.0); Calcium, Ionized (arterial) 1.12 mmol/L (1.12-1.30); Carboxyhemoglobin (COHb) 0.3 gm% (0.0-3.0); Hemoglobin (Hb) 10.3 g/dL (14.0-18.0); O2 Tension (PaO2), arterial 93.4 mmHg (80.0-100.0); Potassium - ABG Lab 3.96 mmol/L (3.70-5.30); pH, Arterial 7.44 (7.35-7.45)
[2021-06-06 07:48] LABS: Puncture Site LRA
[2021-06-06 08:07] LABS: Band 19 % (5-11); Lymphocytes 4 % (21-51); MDiff Complete? YES; Macrocytosis MARKED = >30 cells (100X) (0-5/hpf); Monocytes 5 % (0-10); Neutrophil 71 % (42-75); Platelet Morphology Comment Appears Increased; Polychromasia SLIGHT = 2-3 cells (100X) (0-2/hpf); Reactive Lymphocytes 1 % (0-10); Stomatocytes SLIGHT = 2-5 cells (100X) (0-1/hpf)
[2021-06-06] MEDS: Propofol 1,000 MG/100 ML VIAL IV PRN ×2 (08:14→14:32)
[2021-06-06] MEDS: Ampicillin/Sulbactam 3 GM in Sodium Chloride 0.9% 100 ML IVPB SCH ×4 (08:14→22:00)
[2021-06-06] MEDS: Multivitamin W/ Minerals 1 TAB PO SCH (08:15)
[2021-06-06] MEDS: Thiamine 100 MG TAB PO SCH (08:15)
[2021-06-06] MEDS: Folic Acid 1 MG TAB PO SCH (08:15)
[2021-06-06] MEDS: Famotidine/PF 20 mg/2ml Vial SLOW IVP SCH ×2 (08:20→22:00)
[2021-06-06] MEDS: Enoxaparin Sodium 40 MG/0.4 ML SYRINGE SC SCH (09:00)
[2021-06-06] MEDS: Thiamine HCl 200 MG/2 ML VIAL SLOW IVP SCH (14:22)
[2021-06-06] MEDS ORDERED: Lorazepam 2 MG/ML VIAL ONE ×2 (19:09→20:48)
[2021-06-06] MEDS: Lorazepam 2 MG/ML VIAL SLOW IVP PRN ×2 (19:17→20:58)
[2021-06-06] MEDS ORDERED: Sodium Chloride 0.9% 10 ML ONE (20:49)
[2021-06-06] MEDS ORDERED: Fentanyl CADD 100 ML ONE (23:23)
[2021-06-06] MEDS: Fentanyl CADD 100 ML IV SCH (23:36)
[2021-06-07] MEDS: Propofol 1,000 MG/100 ML VIAL IV PRN ×2 (01:35→12:58)
[2021-06-07] MEDS: Ampicillin/Sulbactam 3 GM in Sodium Chloride 0.9% 100 ML IVPB SCH ×4 (02:00→20:16)
[2021-06-07 05:04] LABS: Hemoglobin 8.2 g/dL (14.0-18.0); Mean Corpuscular HGB CONC 33.1 g/dL (32.0-36.0); Mean Corpuscular Hemoglobin 40.9 pg (27.0-31.0); Mean Platelet Volume 9.8 fL (7.4-10.4); Platelet Count 506 thou/uL (130-400); RBC Distribution Width 14.8 % (11.5-14.5); Red Blood Cell (RBC) Count 2.02 mill/uL (4.70-6.10); White Blood Cell (WBC) Count 7.5 thou/uL (4.8-10.8)
[2021-06-07] MEDS: Lactated Ringer's 1,000 ML IV SCH ×2 (05:15→16:42)
[2021-06-07 05:19] LABS: Anion Gap 13 mmol/L (10-20); BUN (Urea Nitrogen) 17 mg/dL (8.9-20.6); Calc. Creatinine Clearance 169 mL/min (70-130); Calcium 7.8 mg/dL (7.8-10.44); Carbon Dioxide 27 mmol/L (22-29); Chloride 106 mmol/L (98-107); Glucose 122 mg/dL (70-105); Potassium 4.3 mmol/L (3.5-5.1); Sodium 142 mmol/L (136-145)
[2021-06-07 05:36] LABS: Band 21 % (5-11); Lymphocytes 18 % (21-51); MDiff Complete? YES; Monocytes 8 % (0-10); Neutrophil 53 % (42-75); Platelet Morphology Comment Appears Increased; RBC Morphology Normal
[2021-06-07 06:55] LABS: Actual Bicarbonate (HCO3a) 27.9 mEq/L (22-28); Base Excess (BEa) 4.5 mEq/L (-2.0 to +3.0); CO2 Tension 36.5 mmHg (35.0-45.0); Calcium, Ionized (arterial) 1.17 mmol/L (1.12-1.30); Carboxyhemoglobin (COHb) 0.3 gm% (0.0-3.0); Hemoglobin (Hb) 9.4 g/dL (14.0-18.0); O2 Tension (PaO2), arterial 124.6 mmHg (80.0-100.0); Potassium - ABG Lab 3.86 mmol/L (3.70-5.30)
[2021-06-07 06:56] LABS: ALV-art Gradient 114.975 mmHg (0-20); Puncture Site RRA
[2021-06-07] MEDS: Thiamine 100 MG TAB PO SCH (09:04)
[2021-06-07] MEDS: Enoxaparin Sodium 40 MG/0.4 ML SYRINGE SC SCH (09:04)
[2021-06-07] MEDS: Folic Acid 1 MG TAB PO SCH (09:04)
[2021-06-07] MEDS: Famotidine/PF 20 mg/2ml Vial SLOW IVP SCH ×2 (09:04→20:16)
[2021-06-07] MEDS: Multivitamin W/ Minerals 1 TAB PO SCH (09:04)
[2021-06-07] MEDS: Lorazepam 2 MG/ML VIAL SLOW IVP PRN ×2 (12:51→20:16)
[2021-06-07] MEDS ORDERED: Fentanyl CADD 100 ML ONE (13:59)
[2021-06-07] MEDS: Fentanyl CADD 100 ML IV SCH (14:28)
[2021-06-08] MEDS: Ampicillin/Sulbactam 3 GM in Sodium Chloride 0.9% 100 ML IVPB SCH ×4 (02:28→21:58)
[2021-06-08] MEDS: Lactated Ringer's 1,000 ML IV SCH ×3 (02:29→22:53)
[2021-06-08] MEDS: Propofol 1,000 MG/100 ML VIAL IV PRN ×2 (03:59→21:10)
[2021-06-08] MEDS: Lorazepam 2 MG/ML VIAL SLOW IVP PRN (04:17)
[2021-06-08] MEDS ORDERED: Fentanyl CADD 100 ML ONE ×2 (05:52→21:21)
[2021-06-08] MEDS: Fentanyl CADD 100 ML IV SCH ×2 (06:01→21:23)
[2021-06-08] MEDS: Enoxaparin Sodium 40 MG/0.4 ML SYRINGE SC SCH (08:58)
[2021-06-08] MEDS: Multivitamin W/ Minerals 1 TAB PO SCH (08:59)
[2021-06-08] MEDS: Famotidine/PF 20 mg/2ml Vial SLOW IVP SCH ×2 (08:59→21:58)
[2021-06-08] MEDS: Folic Acid 1 MG TAB PO SCH (08:59)
[2021-06-08] MEDS: Thiamine 100 MG TAB PO SCH (08:59)
[2021-06-08 10:14] LABS: Fungus Stain Final report (.)
[2021-06-08 10:14] LABS: Fungus Stain Final report (.)
[2021-06-08 10:14] LABS: Fungus Stain Final report (.)
[2021-06-08] MEDS ORDERED: Fentanyl 100 MCG/2 ML VIAL ONE ×2 (12:38→13:54)
[2021-06-08] MEDS ORDERED: Midazolam HCl 5 mg/5 ml Vial ONE (12:38)
[2021-06-08] MEDS ORDERED: Neomycin-Polymyxin 1 ML AMP ONE ×4 (13:13→14:28)
[2021-06-08] MEDS ORDERED: Rocuronium Bromide 10 MG/ML (10ML VIAL) ONE (13:22)
[2021-06-08] MEDS ORDERED: Dexamethasone 20 MG/5 ML VIAL ONE (13:22)
[2021-06-08] MEDS ORDERED: Ondansetron PF 4 MG/2 ML Vial ONE (13:22)
[2021-06-08] MEDS ORDERED: Bacitracin Zinc Ointment 30 gm TUBE ONE (14:21)
[2021-06-08 17:20] LABS: SARS-CoV-2 PCR by NAA Not Detected (NotDetected)
[2021-06-09 07:56] LABS: Actual Bicarbonate (HCO3a) 29.6 mEq/L (22-28); Base Excess (BEa) 5.8 mEq/L (-2.0 to +3.0); CO2 Tension 39.5 mmHg (35.0-45.0); Calcium, Ionized (arterial) 1.12 mmol/L (1.12-1.30); Carboxyhemoglobin (COHb) 0.1 gm% (0.0-3.0); Hemoglobin (Hb) 9.2 g/dL (14.0-18.0); O2 Tension (PaO2), arterial 113.5 mmHg (80.0-100.0); Potassium - ABG Lab 3.57 mmol/L (3.70-5.30); pH, Arterial 7.49 (7.35-7.45)
[2021-06-09 07:57] LABS: Puncture Site RRA
[2021-06-09 07:58] LABS: ALV-art Gradient 122.325 mmHg (0-20)
[2021-06-09] MEDS: Ampicillin/Sulbactam 3 GM in Sodium Chloride 0.9% 100 ML IVPB SCH ×4 (08:13→21:35)
[2021-06-09] MEDS: Multivitamin W/ Minerals 1 TAB PO SCH (08:14)
[2021-06-09] MEDS: Thiamine 100 MG TAB PO SCH (08:14)
[2021-06-09] MEDS: Enoxaparin Sodium 40 MG/0.4 ML SYRINGE SC SCH (08:14)
[2021-06-09] MEDS: Folic Acid 1 MG TAB PO SCH (08:14)
[2021-06-09] MEDS: Propofol 1,000 MG/100 ML VIAL IV PRN ×3 (08:14→21:37)
[2021-06-09] MEDS: Lorazepam 2 MG/ML VIAL SLOW IVP PRN ×3 (08:15→23:07)
[2021-06-09] MEDS: Famotidine/PF 20 mg/2ml Vial SLOW IVP SCH ×2 (10:00→21:35)
[2021-06-09] MEDS: Fentanyl CADD 100 ML IV SCH (10:28)
[2021-06-09 13:00] LABS: #Eosinphils 0.2 thou/uL (0.0-0.7); #Lymphocytes 2.3 thou/uL (1.20-3.40); #Monocytes 0.8 thou/uL (0.11-0.59); #Neutrophils 6.8 thou/uL (1.40-6.50); %Basophils 0.3 % (0.0-1.0); %Lymphocytes 22.4 % (21.0-51.0); %Monocytes 7.9 % (0.0-10.0); %Neutrophils 67.3 % (42.0-75.0); Hemoglobin 9.3 g/dL (14.0-18.0); Mean Corpuscular HGB CONC 35.1 g/dL (32.0-36.0); Mean Corpuscular Hemoglobin 41.8 pg (27.0-31.0); Mean Platelet Volume 8.9 fL (7.4-10.4); Platelet Count 552 thou/uL (130-400); RBC Distribution Width 15.1 % (11.5-14.5); Red Blood Cell (RBC) Count 2.22 mill/uL (4.70-6.10); White Blood Cell (WBC) Count 10.1 thou/uL (4.8-10.8)
[2021-06-09 13:21] LABS: ALT (SGPT) 28 U/L (8-55); AST (SGOT) 34 U/L (5-34); Albumin 1.8 g/dL (3.5-5.0); Alkaline Phosphatase 162 U/L (40-110); Anion Gap 8 mmol/L (10-20); BUN (Urea Nitrogen) 8 mg/dL (8.9-20.6); Bilirubin, Total 0.5 mg/dL (0.2-1.2); Calc. Creatinine Clearance 197 mL/min (70-130); Calcium 7.4 mg/dL (7.8-10.44); Carbon Dioxide 30 mmol/L (22-29); Chloride 105 mmol/L (98-107); Glucose 128 mg/dL (70-105); Potassium 3.9 mmol/L (3.5-5.1); Protein, Total 3.8 g/dL (6.0-8.3); Sodium 139 mmol/L (136-145)
[2021-06-09] MEDS: Lactated Ringer's 1,000 ML IV SCH ×3 (13:51→21:35)
[2021-06-10] MEDS: Ampicillin/Sulbactam 3 GM in Sodium Chloride 0.9% 100 ML IVPB SCH ×4 (02:08→20:24)
[2021-06-10] MEDS: Propofol 1,000 MG/100 ML VIAL IV PRN (05:15)
[2021-06-10] MEDS: Famotidine/PF 20 mg/2ml Vial SLOW IVP SCH ×2 (08:56→20:25)
[2021-06-10] MEDS: Enoxaparin Sodium 40 MG/0.4 ML SYRINGE SC SCH (08:56)
[2021-06-10] MEDS: Multivitamin W/ Minerals 1 TAB PO SCH (08:57)
[2021-06-10] MEDS: Folic Acid 1 MG TAB PO SCH (08:57)
[2021-06-10] MEDS: Thiamine 100 MG TAB PO SCH (08:58)
[2021-06-10] MEDS ORDERED: Dexamethasone 10 MG/ML VIAL SLOW IVP SCH (09:00)
[2021-06-10] MEDS: Bacitracin 1 PK TOP SCH ×2 (13:00→20:24)
[2021-06-10] MEDS: Lactated Ringer's 1,000 ML IV SCH (15:39)
[2021-06-10] MEDS: Morphine 2 MG/ML VIAL SLOW IVP PRN ×2 (17:12→21:07)
[2021-06-10 17:50] VITALS: BMI 25.7
[2021-06-11] MEDS: Morphine 2 MG/ML VIAL SLOW IVP PRN ×4 (00:45→21:21)
[2021-06-11] MEDS: Lactated Ringer's 1,000 ML IV SCH ×3 (03:37→21:10)
[2021-06-11] MEDS: Ampicillin/Sulbactam 3 GM in Sodium Chloride 0.9% 100 ML IVPB SCH ×4 (03:37→23:59)
[2021-06-11 08:08] LABS: #Basophils 0.1 thou/uL (0.0-0.2); #Eosinphils 0.2 thou/uL (0.0-0.7); #Lymphocytes 2.6 thou/uL (1.20-3.40); #Monocytes 0.7 thou/uL (0.11-0.59); #Neutrophils 5.2 thou/uL (1.40-6.50); %Basophils 1.4 % (0.0-1.0); %Eosinophils 1.9 % (0.0-10.0); %Lymphocytes 29.5 % (21.0-51.0); %Monocytes 7.5 % (0.0-10.0); %Neutrophils 59.7 % (42.0-75.0); Hemoglobin 9.2 g/dL (14.0-18.0); Mean Corpuscular Hemoglobin 40.6 pg (27.0-31.0); Mean Platelet Volume 8.7 fL (7.4-10.4); Platelet Count 670 thou/uL (130-400); RBC Distribution Width 14.8 % (11.5-14.5); Red Blood Cell (RBC) Count 2.27 mill/uL (4.70-6.10); White Blood Cell (WBC) Count 8.7 thou/uL (4.8-10.8)
[2021-06-11] MEDS: Famotidine/PF 20 mg/2ml Vial SLOW IVP SCH ×2 (08:15→21:08)
[2021-06-11] MEDS: Bacitracin 1 PK TOP SCH ×2 (08:16→21:09)
[2021-06-11] MEDS: Enoxaparin Sodium 40 MG/0.4 ML SYRINGE SC SCH (08:16)
[2021-06-11 08:27] LABS: Anion Gap 11 mmol/L (10-20); BUN (Urea Nitrogen) 7 mg/dL (8.9-20.6); Calc. Creatinine Clearance 194 mL/min (70-130); Calcium 8.2 mg/dL (7.8-10.44); Carbon Dioxide 28 mmol/L (22-29); Chloride 105 mmol/L (98-107); Glucose 78 mg/dL (70-105); Sodium 140 mmol/L (136-145)
[2021-06-11] MEDS: Folic Acid 1 MG TAB PO SCH (09:00)
[2021-06-11] MEDS: Thiamine 100 MG TAB PO SCH (09:00)
[2021-06-11] MEDS: Multivitamin W/ Minerals 1 TAB PO SCH (09:00)
[2021-06-11] MEDS ORDERED: Morphine 2 MG/ML VIAL SLOW IVP SCH (13:15)
[2021-06-11] MEDS: Chlorhexidine Gluconate 15 ML UDCUP SSP SCH (21:08)
[2021-06-12] MEDS: Morphine 2 MG/ML VIAL SLOW IVP PRN ×4 (00:32→14:14)
[2021-06-12] MEDS: Ampicillin/Sulbactam 3 GM in Sodium Chloride 0.9% 100 ML IVPB SCH ×2 (04:36→09:13)
[2021-06-12] MEDS ORDERED: Dextrose 5 %-0.45 % NaCl 1,000 ML IV SCH (06:00)
[2021-06-12] MEDS: Dextrose 5 %-0.45 % NaCl 1,000 ML IV SCH ×3 (06:03→21:07)
[2021-06-12] MEDS: Bacitracin 1 PK TOP SCH ×2 (08:20→21:12)
[2021-06-12] MEDS: Multivitamin W/ Minerals 1 TAB PO SCH (08:20)
[2021-06-12] MEDS: Chlorhexidine Gluconate 15 ML UDCUP SSP SCH ×2 (08:20→21:22)
[2021-06-12] MEDS: Folic Acid 1 MG TAB PO SCH (08:20)
[2021-06-12] MEDS: Thiamine 100 MG TAB PO SCH (08:20)
[2021-06-12] MEDS: Enoxaparin Sodium 40 MG/0.4 ML SYRINGE SC SCH (08:21)
[2021-06-12] MEDS: Famotidine/PF 20 mg/2ml Vial SLOW IVP SCH ×2 (08:21→21:01)
[2021-06-12] MEDS ORDERED: hydrALAZINE 20 MG/ML VIAL SLOW IVP PRN (11:43)
[2021-06-12] MEDS ORDERED: Iopamidol-370 76% 500 ML 1 ML ONE (12:10)
[2021-06-12] MEDS ORDERED: Meropenem 2 GM in Sodium Chloride 0.9% 100 ML IVPB SCH (14:00)
[2021-06-12] MEDS ORDERED: Meropenem 2 GM in Admixture Fee 1 EACH IVPB SCH (14:00)
[2021-06-12] MEDS ORDERED: Dexmedetomidine 200 MCG/2 ML VIAL ONE (14:52)
[2021-06-12] MEDS ORDERED: Midazolam HCl 2 mg/2 ml Vial ONE (14:52)
[2021-06-12] MEDS ORDERED: Fentanyl 100 MCG/2 ML VIAL ONE ×2 (14:52→19:34)
[2021-06-12] MEDS ORDERED: Bacitracin Zinc Ointment 30 gm TUBE ONE (15:07)
[2021-06-12] MEDS ORDERED: Lidocaine 1% w/Epinephrine 1:100K 20 ML VIAL ONE ×2 (15:07→19:23)
[2021-06-12] MEDS ORDERED: AFRIN NASAL MIST 15 ML BOT ONE (16:57)
[2021-06-12] MEDS ORDERED: Lidocaine 2% Jelly 5 ML TUBE ONE (16:59)
[2021-06-12] MEDS ORDERED: Neomycin-Polymyxin 1 ML AMP ONE ×2 (17:06→18:29)
[2021-06-12] MEDS ORDERED: Ketorolac Tromethamine 30 MG/ML VIAL ONE (17:30)
[2021-06-12] MEDS ORDERED: Rocuronium Bromide 10 MG/ML (10ML VIAL) ONE (17:30)
[2021-06-12] MEDS ORDERED: Lidocaine 1% PF 5 ML VIAL ONE (17:30)
[2021-06-12] MEDS ORDERED: Ondansetron PF 4 MG/2 ML Vial ONE (17:30)
[2021-06-12] MEDS ORDERED: PROPOFOL 200 MG/20 ML VIAL ONE (17:30)
[2021-06-12] MEDS ORDERED: Dexamethasone 20 MG/5 ML VIAL ONE (17:30)
[2021-06-12] MEDS ORDERED: Chlorhexidine Gluconate 15 ML UDCUP SSP ONE (19:14)
[2021-06-12] MEDS: Propofol 1,000 MG/100 ML VIAL IV PRN (20:00)
[2021-06-12] MEDS ORDERED: Fentanyl CADD 100 ML ONE (20:30)
[2021-06-12] MEDS ORDERED: Ventilator Sedation Protocol 1 EACH IVPB PRN (20:33)
[2021-06-12] MEDS ORDERED: Lorazepam 2 MG/ML VIAL SLOW IVP PRN (20:45)
[2021-06-12] MEDS ORDERED: Morphine 2 MG/ML VIAL SLOW IVP PRN (20:45)
[2021-06-12] MEDS ORDERED: Propofol BOLUS 1,000 MG/100 ML VIAL IV PRN (20:45)
[2021-06-12] MEDS ORDERED: DISCONTINUE PREVIOUS NARCOTIC PAIN MEDICATIONS AND BENZODIAZEPINES FS SCH (20:45)
[2021-06-12] MEDS ORDERED: Fentanyl BOLUS 250 ML IVPB PRN (20:45)
[2021-06-12] MEDS ORDERED: Fentanyl CADD 100 ML IV SCH (20:45)
[2021-06-12] MEDS: Lorazepam 2 MG/ML VIAL SLOW IVP PRN (21:01)
[2021-06-12 21:16] LABS: Actual Bicarbonate (HCO3a) 22.4 mEq/L (22-28); Base Excess (BEa) 0.6 mEq/L (-2.0 to +3.0); CO2 Tension 26.6 mmHg (35.0-45.0); Calcium, Ionized (arterial) 1.12 mmol/L (1.12-1.30); Carboxyhemoglobin (COHb) 0.3 gm% (0.0-3.0); O2 Tension (PaO2), arterial 75.1 mmHg (80.0-100.0); Potassium - ABG Lab 3.23 mmol/L (3.70-5.30); pH, Arterial 7.54 (7.35-7.45)
[2021-06-12 21:25] LABS: Puncture Site RR
[2021-06-12] MEDS ORDERED: MEROPENEM IVPB SCH (22:00)
[2021-06-12] MEDS ORDERED: SODIUM CHLORIDE 0.9% IVPB SCH (22:00)
[2021-06-12] MEDS: Meropenem 2 GM in Sodium Chloride 0.9% 100 ML IVPB SCH (22:08)
[2021-06-13] MEDS: Propofol 1,000 MG/100 ML VIAL IV PRN (02:49)
[2021-06-13] MEDS: Dextrose 5 %-0.45 % NaCl 1,000 ML IV SCH ×2 (02:50→07:13)
[2021-06-13] MEDS: Meropenem 2 GM in Sodium Chloride 0.9% 100 ML IVPB SCH ×3 (06:41→21:58)
[2021-06-13] MEDS: Bacitracin 1 PK TOP SCH ×2 (09:22→20:02)
[2021-06-13] MEDS: Chlorhexidine Gluconate 15 ML UDCUP SSP SCH ×2 (09:30→20:02)
[2021-06-13] MEDS: Enoxaparin Sodium 40 MG/0.4 ML SYRINGE SC SCH (09:30)
[2021-06-13] MEDS: Multivitamin W/ Minerals 1 TAB PO SCH (09:31)
[2021-06-13] MEDS: Folic Acid 1 MG TAB PO SCH (09:31)
[2021-06-13] MEDS: Famotidine/PF 20 mg/2ml Vial SLOW IVP SCH ×2 (09:31→20:03)
[2021-06-13] MEDS: Morphine 2 MG/ML VIAL SLOW IVP PRN ×4 (09:38→20:03)
[2021-06-13 12:10] LABS: Magnesium 1.6 mg/dL (1.6-2.6); Phosphorus 3.6 mg/dL (2.3-4.7)
[2021-06-13] MEDS ORDERED: Acetaminophen/Codeine 12.5 ML UDCUP PO PRN (14:01)
[2021-06-13] MEDS ORDERED: Acetaminophen 650 MG/20.3 ML UDCUP PO PRN (14:10)
[2021-06-13] MEDS ORDERED: Acetaminophen 325 MG/10.15 ML UDCUP PO PRN (16:00)
[2021-06-13] MEDS: Ibuprofen 100 MG/5 ML UDCUP PO PRN (17:13)
[2021-06-14] MEDS: Acetaminophen W/ Codeine 5 ML UDCUP PO PRN (00:50)
[2021-06-14] MEDS: Morphine 2 MG/ML VIAL SLOW IVP PRN ×4 (02:58→18:16)
[2021-06-14] MEDS: Dextrose 5 %-0.45 % NaCl 1,000 ML IV SCH (02:59)
[2021-06-14] MEDS: Meropenem 2 GM in Sodium Chloride 0.9% 100 ML IVPB SCH ×3 (06:33→21:32)
[2021-06-14 06:56] LABS: #Basophils 0.1 thou/uL (0.0-0.2); #Eosinphils 0.1 thou/uL (0.0-0.7); #Lymphocytes 2.3 thou/uL (1.20-3.40); #Monocytes 1.1 thou/uL (0.11-0.59); #Neutrophils 5.5 thou/uL (1.40-6.50); %Eosinophils 0.8 % (0.0-10.0); %Lymphocytes 25.4 % (21.0-51.0); %Monocytes 11.8 % (0.0-10.0); %Neutrophils 60.9 % (42.0-75.0); Hemoglobin 9.4 g/dL (14.0-18.0); Mean Corpuscular HGB CONC 33.1 g/dL (32.0-36.0); Mean Corpuscular Hemoglobin 39.5 pg (27.0-31.0); Platelet Count 517 thou/uL (130-400); RBC Distribution Width 14.7 % (11.5-14.5); Red Blood Cell (RBC) Count 2.37 mill/uL (4.70-6.10)
[2021-06-14 07:23] LABS: ALT (SGPT) 19 U/L (8-55); AST (SGOT) 23 U/L (5-34); Albumin 2.4 g/dL (3.5-5.0); Alkaline Phosphatase 174 U/L (40-110); Anion Gap 11 mmol/L (10-20); BUN (Urea Nitrogen) 4 mg/dL (8.9-20.6); Bilirubin, Total 0.6 mg/dL (0.2-1.2); Calc. Creatinine Clearance 163 mL/min (70-130); Calcium 8.2 mg/dL (7.8-10.44); Carbon Dioxide 29 mmol/L (22-29); Chloride 104 mmol/L (98-107); Globulin 2.6 g/dL (2.4-3.5); Glucose 94 mg/dL (70-105); Potassium 3.7 mmol/L (3.5-5.1); Sodium 140 mmol/L (136-145)
[2021-06-14] MEDS: Chlorhexidine Gluconate 15 ML UDCUP SSP SCH ×2 (07:58→20:38)
[2021-06-14] MEDS: Folic Acid 1 MG TAB PO SCH (07:58)
[2021-06-14] MEDS: Multivitamin W/ Minerals 1 TAB PO SCH (07:59)
[2021-06-14] MEDS: Enoxaparin Sodium 40 MG/0.4 ML SYRINGE SC SCH (08:08)
[2021-06-14] MEDS: Famotidine/PF 20 mg/2ml Vial SLOW IVP SCH ×2 (08:08→20:39)
[2021-06-14] MEDS ORDERED: Lorazepam 2 MG/ML VIAL SLOW IVP PRN (12:49)
[2021-06-14] MEDS: Bacitracin 1 PK TOP SCH ×2 (12:49→20:39)
[2021-06-14 13:28] LABS: Magnesium 1.7 mg/dL (1.6-2.6); Phosphorus 3.6 mg/dL (2.3-4.7)
[2021-06-14] MEDS ORDERED: Amino Acids 4.25 %/Dextrose 5% 2,000 ML IV SCH (16:00)
[2021-06-14] MEDS: Amino Acids 4.25 %/Dextrose 5% 1,000 ML IV SCH (18:06)
[2021-06-14] MEDS: Ketorolac Tromethamine 30 MG/ML VIAL IVP PRN (21:31)
[2021-06-15] MEDS: Morphine 2 MG/ML VIAL SLOW IVP PRN ×6 (01:00→19:42)
[2021-06-15] MEDS: Amino Acids 4.25 %/Dextrose 5% 1,000 ML IV SCH ×2 (05:00→08:05)
[2021-06-15] MEDS: Meropenem 2 GM in Sodium Chloride 0.9% 100 ML IVPB SCH ×3 (07:06→19:42)
[2021-06-15 07:10] LABS: #Basophils 0.1 thou/uL (0.0-0.2); #Eosinphils 0.1 thou/uL (0.0-0.7); #Lymphocytes 1.7 thou/uL (1.20-3.40); #Monocytes 0.7 thou/uL (0.11-0.59); #Neutrophils 3.7 thou/uL (1.40-6.50); %Basophils 1.8 % (0.0-1.0); %Eosinophils 1.3 % (0.0-10.0); %Lymphocytes 27.6 % (21.0-51.0); %Monocytes 11.1 % (0.0-10.0); %Neutrophils 58.1 % (42.0-75.0); Hemoglobin 8.1 g/dL (14.0-18.0); Mean Corpuscular Hemoglobin 39.4 pg (27.0-31.0); Mean Platelet Volume 8.4 fL (7.4-10.4); Platelet Count 373 thou/uL (130-400); RBC Distribution Width 14.5 % (11.5-14.5); Red Blood Cell (RBC) Count 2.05 mill/uL (4.70-6.10); White Blood Cell (WBC) Count 6.3 thou/uL (4.8-10.8)
[2021-06-15] MEDS: Chlorhexidine Gluconate 15 ML UDCUP SSP SCH ×2 (07:17→19:41)
[2021-06-15] MEDS: Multivitamin W/ Minerals 1 TAB PO SCH (07:17)
[2021-06-15] MEDS: Folic Acid 1 MG TAB PO SCH (07:17)
[2021-06-15] MEDS: Famotidine/PF 20 mg/2ml Vial SLOW IVP SCH ×2 (07:40→19:41)
[2021-06-15] MEDS: Enoxaparin Sodium 40 MG/0.4 ML SYRINGE SC SCH (07:40)
[2021-06-15] MEDS: Bacitracin 1 PK TOP SCH ×2 (07:41→19:41)
[2021-06-15 07:58] LABS: ALT (SGPT) 14 U/L (8-55); AST (SGOT) 13 U/L (5-34); Albumin 2.1 g/dL (3.5-5.0); Alkaline Phosphatase 122 U/L (40-110); Anion Gap 10 mmol/L (10-20); BUN (Urea Nitrogen) 5 mg/dL (8.9-20.6); Bilirubin, Total 0.5 mg/dL (0.2-1.2); Calc. Creatinine Clearance 193 mL/min (70-130); Calcium 7.9 mg/dL (7.8-10.44); Carbon Dioxide 28 mmol/L (22-29); Chloride 105 mmol/L (98-107); Globulin 2.2 g/dL (2.4-3.5); Glucose 107 mg/dL (70-105); Potassium 3.4 mmol/L (3.5-5.1); Protein, Total 4.3 g/dL (6.0-8.3); Sodium 140 mmol/L (136-145)
[2021-06-15 08:06] LABS: Magnesium 1.6 mg/dL (1.6-2.6); Phosphorus 2.7 mg/dL (2.3-4.7)
[2021-06-15] MEDS ORDERED: Amino Acids 4.25 %/Dextrose 5% 2,000 ML BAG IV SCH (09:00)
[2021-06-15 11:16] LABS: Fungus Stain Final report (.)
[2021-06-15] MEDS ORDERED: Sodium Acetate 2 mEq/ml 40 MEQ, Sodium Chloride 30 MEQ, Potassium Chloride 20 MEQ, Pota... IV SCH ×2 (22:00)
[2021-06-16] MEDS: Morphine 2 MG/ML VIAL SLOW IVP PRN ×3 (02:42→23:53)
[2021-06-16] MEDS: Meropenem 2 GM in Sodium Chloride 0.9% 100 ML IVPB SCH ×3 (06:27→20:18)
[2021-06-16 06:51] LABS: #Basophils 0.1 thou/uL (0.0-0.2); #Eosinphils 0.1 thou/uL (0.0-0.7); #Lymphocytes 2.1 thou/uL (1.20-3.40); #Monocytes 0.6 thou/uL (0.11-0.59); #Neutrophils 2.7 thou/uL (1.40-6.50); %Basophils 1.8 % (0.0-1.0); %Lymphocytes 37.7 % (21.0-51.0); %Monocytes 10.8 % (0.0-10.0); %Neutrophils 47.7 % (42.0-75.0); Hemoglobin 8.6 g/dL (14.0-18.0); Mean Platelet Volume 8.3 fL (7.4-10.4); Platelet Count 381 thou/uL (130-400); RBC Distribution Width 14.5 % (11.5-14.5); Red Blood Cell (RBC) Count 2.16 mill/uL (4.70-6.10); White Blood Cell (WBC) Count 5.5 thou/uL (4.8-10.8)
[2021-06-16 07:13] LABS: ALT (SGPT) 14 U/L (8-55); AST (SGOT) 14 U/L (5-34); Albumin 2.4 g/dL (3.5-5.0); Alkaline Phosphatase 127 U/L (40-110); Anion Gap 9 mmol/L (10-20); BUN (Urea Nitrogen) 4 mg/dL (8.9-20.6); Bilirubin, Total 0.6 mg/dL (0.2-1.2); Calc. Creatinine Clearance 205 mL/min (70-130); Calcium 8.2 mg/dL (7.8-10.44); Carbon Dioxide 30 mmol/L (22-29); Chloride 105 mmol/L (98-107); Globulin 2.3 g/dL (2.4-3.5); Glucose 86 mg/dL (70-105); Magnesium 1.8 mg/dL (1.6-2.6); Phosphorus 2.5 mg/dL (2.3-4.7); Potassium 3.3 mmol/L (3.5-5.1); Protein, Total 4.7 g/dL (6.0-8.3); Sodium 141 mmol/L (136-145)
[2021-06-16] MEDS: Ketorolac Tromethamine 30 MG/ML VIAL IVP PRN ×3 (08:15→20:18)
[2021-06-16] MEDS: Famotidine/PF 20 mg/2ml Vial SLOW IVP SCH ×2 (08:21→20:18)
[2021-06-16] MEDS: Chlorhexidine Gluconate 15 ML UDCUP SSP SCH ×2 (08:21→20:18)
[2021-06-16] MEDS: Enoxaparin Sodium 40 MG/0.4 ML SYRINGE SC SCH (08:21)
[2021-06-16] MEDS: Multivitamin W/ Minerals 1 TAB PO SCH (08:22)
[2021-06-16] MEDS: Bacitracin 1 PK TOP SCH ×2 (08:22→20:18)
[2021-06-16] MEDS: Folic Acid 1 MG TAB PO SCH (08:22)
[2021-06-16 12:59] LABS: SARS-CoV-2 PCR by NAA Not Detected (NotDetected)
[2021-06-16] MEDS ORDERED: Potassium Chloride 20 MEQ in Premix Bag 1 BAG IVPB SCH (16:45)
[2021-06-17] MEDS: Ketorolac Tromethamine 30 MG/ML VIAL IVP PRN ×4 (05:17→23:05)
[2021-06-17] MEDS: Meropenem 2 GM in Sodium Chloride 0.9% 100 ML IVPB SCH ×3 (05:37→22:02)
[2021-06-17 07:11] LABS: #Basophils 0.2 thou/uL (0.0-0.2); #Eosinphils 0.2 thou/uL (0.0-0.7); #Monocytes 0.6 thou/uL (0.11-0.59); #Neutrophils 3.5 thou/uL (1.40-6.50); %Basophils 2.4 % (0.0-1.0); %Lymphocytes 30.5 % (21.0-51.0); %Monocytes 9.4 % (0.0-10.0); %Neutrophils 54.8 % (42.0-75.0); Hemoglobin 9.2 g/dL (14.0-18.0); Mean Corpuscular HGB CONC 32.8 g/dL (32.0-36.0); Mean Corpuscular Hemoglobin 38.8 pg (27.0-31.0); Mean Platelet Volume 8.7 fL (7.4-10.4); Platelet Count 352 thou/uL (130-400); RBC Distribution Width 14.1 % (11.5-14.5); Red Blood Cell (RBC) Count 2.37 mill/uL (4.70-6.10); White Blood Cell (WBC) Count 6.4 thou/uL (4.8-10.8)
[2021-06-17 07:26] LABS: ALT (SGPT) 16 U/L (8-55); AST (SGOT) 21 U/L (5-34); Albumin 2.5 g/dL (3.5-5.0); Alkaline Phosphatase 120 U/L (40-110); Anion Gap 14 mmol/L (10-20); BUN (Urea Nitrogen) 4 mg/dL (8.9-20.6); Bilirubin, Total 0.7 mg/dL (0.2-1.2); Calc. Creatinine Clearance 201 mL/min (70-130); Carbon Dioxide 26 mmol/L (22-29); Chloride 104 mmol/L (98-107); Globulin 2.4 g/dL (2.4-3.5); Glucose 64 mg/dL (70-105); Magnesium 1.8 mg/dL (1.6-2.6); Phosphorus 2.4 mg/dL (2.3-4.7); Potassium 3.6 mmol/L (3.5-5.1); Protein, Total 4.9 g/dL (6.0-8.3); Sodium 140 mmol/L (136-145)
[2021-06-17] MEDS: Famotidine/PF 20 mg/2ml Vial SLOW IVP SCH ×2 (08:50→20:16)
[2021-06-17] MEDS: Enoxaparin Sodium 40 MG/0.4 ML SYRINGE SC SCH (08:51)
[2021-06-17] MEDS: Bacitracin 1 PK TOP SCH ×2 (08:51→20:17)
[2021-06-17] MEDS: Chlorhexidine Gluconate 15 ML UDCUP SSP SCH ×2 (08:51→20:16)
[2021-06-17] MEDS: Multivitamin W/ Minerals 1 TAB PO SCH (08:52)
[2021-06-17] MEDS: Folic Acid 1 MG TAB PO SCH (08:52)
[2021-06-17] MEDS: Morphine 2 MG/ML VIAL SLOW IVP PRN ×2 (14:32→20:17)
[2021-06-18] MEDS: Morphine 2 MG/ML VIAL SLOW IVP PRN ×5 (00:45→21:43)
[2021-06-18] MEDS: Ibuprofen 100 MG/5 ML UDCUP PO PRN (03:09)
[2021-06-18] MEDS: Meropenem 2 GM in Sodium Chloride 0.9% 100 ML IVPB SCH ×3 (05:12→21:42)
[2021-06-18] MEDS: Ketorolac Tromethamine 30 MG/ML VIAL IVP PRN ×3 (05:12→20:21)
[2021-06-18 06:50] LABS: #Basophils 0.1 thou/uL (0.0-0.2); #Eosinphils 0.1 thou/uL (0.0-0.7); #Lymphocytes 1.8 thou/uL (1.20-3.40); #Monocytes 0.5 thou/uL (0.11-0.59); #Neutrophils 2.3 thou/uL (1.40-6.50); %Basophils 2.4 % (0.0-1.0); %Eosinophils 2.8 % (0.0-10.0); %Lymphocytes 37.4 % (21.0-51.0); %Neutrophils 46.4 % (42.0-75.0); Hemoglobin 8.4 g/dL (14.0-18.0); Mean Corpuscular HGB CONC 33.7 g/dL (32.0-36.0); Mean Corpuscular Hemoglobin 39.6 pg (27.0-31.0); Mean Platelet Volume 8.4 fL (7.4-10.4); Platelet Count 316 thou/uL (130-400); RBC Distribution Width 14.2 % (11.5-14.5); Red Blood Cell (RBC) Count 2.13 mill/uL (4.70-6.10); White Blood Cell (WBC) Count 4.8 thou/uL (4.8-10.8)
[2021-06-18 07:15] LABS: ALT (SGPT) 18 U/L (8-55); AST (SGOT) 26 U/L (5-34); Albumin 2.5 g/dL (3.5-5.0); Alkaline Phosphatase 113 U/L (40-110); Anion Gap 10 mmol/L (10-20); BUN (Urea Nitrogen) Less than 4 mg/dL (8.9-20.6); Bilirubin, Total 0.6 mg/dL (0.2-1.2); Calc. Creatinine Clearance 197 mL/min (70-130); Calcium 8.1 mg/dL (7.8-10.44); Carbon Dioxide 30 mmol/L (22-29); Chloride 104 mmol/L (98-107); Globulin 2.3 g/dL (2.4-3.5); Glucose 82 mg/dL (70-105); Magnesium 1.8 mg/dL (1.6-2.6); Phosphorus 2.4 mg/dL (2.3-4.7); Potassium 3.4 mmol/L (3.5-5.1); Protein, Total 4.8 g/dL (6.0-8.3); Sodium 141 mmol/L (136-145)
[2021-06-18] MEDS ORDERED: Potassium Chloride 20 MEQ TAB PO SCH (08:00)
[2021-06-18] MEDS: Famotidine/PF 20 mg/2ml Vial SLOW IVP SCH ×2 (08:32→20:22)
[2021-06-18] MEDS: Multivitamin W/ Minerals 1 TAB PO SCH (08:32)
[2021-06-18] MEDS: Folic Acid 1 MG TAB PO SCH (08:32)
[2021-06-18] MEDS: Chlorhexidine Gluconate 15 ML UDCUP SSP SCH ×2 (08:33→20:23)
[2021-06-18] MEDS: Enoxaparin Sodium 40 MG/0.4 ML SYRINGE SC SCH (08:33)
[2021-06-18] MEDS: Bacitracin 1 PK TOP SCH ×2 (08:33→20:35)
[2021-06-19] MEDS: Morphine 2 MG/ML VIAL SLOW IVP PRN ×4 (02:11→21:06)
[2021-06-19] MEDS: Meropenem 2 GM in Sodium Chloride 0.9% 100 ML IVPB SCH ×3 (05:34→22:15)
[2021-06-19] MEDS: Ketorolac Tromethamine 30 MG/ML VIAL IVP PRN (05:34)
[2021-06-19 07:14] LABS: #Basophils 0.1 thou/uL (0.0-0.2); #Eosinphils 0.1 thou/uL (0.0-0.7); #Lymphocytes 1.9 thou/uL (1.20-3.40); #Monocytes 0.5 thou/uL (0.11-0.59); #Neutrophils 3.7 thou/uL (1.40-6.50); %Basophils 1.9 % (0.0-1.0); %Eosinophils 2.3 % (0.0-10.0); %Lymphocytes 30.1 % (21.0-51.0); %Monocytes 7.7 % (0.0-10.0); Hemoglobin 9.4 g/dL (14.0-18.0); Mean Corpuscular HGB CONC 32.1 g/dL (32.0-36.0); Mean Corpuscular Hemoglobin 37.8 pg (27.0-31.0); Mean Platelet Volume 8.4 fL (7.4-10.4); Platelet Count 322 thou/uL (130-400); RBC Distribution Width 14.2 % (11.5-14.5); Red Blood Cell (RBC) Count 2.49 mill/uL (4.70-6.10); White Blood Cell (WBC) Count 6.4 thou/uL (4.8-10.8)
[2021-06-19] MEDS: Multivitamin W/ Minerals 1 TAB PO SCH (08:38)
[2021-06-19] MEDS: Chlorhexidine Gluconate 15 ML UDCUP SSP SCH ×2 (08:38→21:05)
[2021-06-19] MEDS: Folic Acid 1 MG TAB PO SCH (08:38)
[2021-06-19] MEDS: Bacitracin 1 PK TOP SCH ×2 (08:38→21:04)
[2021-06-19] MEDS: Enoxaparin Sodium 40 MG/0.4 ML SYRINGE SC SCH (08:38)
[2021-06-19] MEDS: Famotidine/PF 20 mg/2ml Vial SLOW IVP SCH ×2 (08:39→21:05)
[2021-06-19 11:02] LABS: Albumin 2.7 g/dL (3.5-5.0)
[2021-06-19 11:04] LABS: Calcium 8.5 mg/dL (7.8-10.44); Chloride 105 mmol/L (98-107); Potassium 4.1 mmol/L (3.5-5.1); Sodium 140 mmol/L (136-145)
[2021-06-19 11:05] LABS: Globulin 2.5 g/dL (2.4-3.5); Glucose 102 mg/dL (70-105); Protein, Total 5.2 g/dL (6.0-8.3)
[2021-06-19 11:06] LABS: Anion Gap 10 mmol/L (10-20); Carbon Dioxide 29 mmol/L (22-29)
[2021-06-19 11:07] LABS: Bilirubin, Total 0.6 mg/dL (0.2-1.2)
[2021-06-19 11:08] LABS: Alkaline Phosphatase 115 U/L (40-110); Calc. Creatinine Clearance 181 mL/min (70-130); Phosphorus 2.6 mg/dL (2.3-4.7)
[2021-06-19 11:09] LABS: BUN (Urea Nitrogen) 5 mg/dL (8.9-20.6)
[2021-06-19 11:10] LABS: AST (SGOT) 23 U/L (5-34); Magnesium 1.7 mg/dL (1.6-2.6)
[2021-06-19 11:11] LABS: ALT (SGPT) 18 U/L (8-55)
[2021-06-19] MEDS: Acetaminophen W/ Codeine 5 ML UDCUP PO PRN (22:15)
[2021-06-20] MEDS ORDERED: diphenhydrAMINE 25 MG CAP PO SCH (00:45)
[2021-06-20] MEDS: Meropenem 2 GM in Sodium Chloride 0.9% 100 ML IVPB SCH ×2 (05:46→13:49)
[2021-06-20] MEDS: Enoxaparin Sodium 40 MG/0.4 ML SYRINGE SC SCH (08:25)
[2021-06-20] MEDS: Chlorhexidine Gluconate 15 ML UDCUP SSP SCH (08:25)
[2021-06-20] MEDS: Folic Acid 1 MG TAB PO SCH (08:26)
[2021-06-20] MEDS: Famotidine/PF 20 mg/2ml Vial SLOW IVP SCH (08:26)
[2021-06-20] MEDS: Bacitracin 1 PK TOP SCH (08:26)
[2021-06-20] MEDS: Multivitamin W/ Minerals 1 TAB PO SCH (08:26)
[2021-06-20] MEDS: Ibuprofen 100 MG/5 ML UDCUP PO PRN (09:00)
[2021-06-20] MEDS: Acetaminophen W/ Codeine 5 ML UDCUP PO PRN (10:02)
[2021-06-20 12:12] VITALS: BP 147/71; TEMP 97.4
== END 2021-06-20 15:37 | disposition home or self-care (01) | DRG 853 ==
LOC: ERS 19:14 → SDC/OP 22:46 → CCU 06-01 00:25 → SURG B 06-01 14:16 → SURG A 06-01 14:39 → SURG B 06-01 16:05 → SURG A 06-05 13:06 → PACU-TCU 06-05 22:25 → CCU 06-06 21:07 → SJJU 06-11 14:38 → CCU 06-12 20:02 → T4-A 06-13 21:51
PROVIDERS: ADMIT Internal Medicine; ATTEND Internal Medicine
PROC: 0J910ZZ Drainage of Face Subcutaneous Tissue and Fascia, Open Approach (ICD-10-PCS; principal; 2021-05-31)
PROC: 0CDWXZ0 Extraction of Upper Tooth, Single, External Approach (ICD-10-PCS; 2021-05-31)
PROC: 0J910ZZ Drainage of Face Subcutaneous Tissue and Fascia, Open Approach (ICD-10-PCS; 2021-06-05)
PROC: 5A1955Z Respiratory Ventilation, Greater than 96 Consecutive Hours (ICD-10-PCS; 2021-06-05)
PROC: 0BH18EZ Insertion of Endotracheal Airway into Trachea, Via Natural or Artificial Opening Endoscopic (ICD-10-PCS; 2021-06-05)
PROC: 0DH67UZ Insertion of Feeding Device into Stomach, Via Natural or Artificial Opening (ICD-10-PCS; 2021-06-05)
PROC: 0D9670Z Drainage of Stomach with Drainage Device, Via Natural or Artificial Opening (ICD-10-PCS; 2021-06-05)
PROC: 0J910ZZ Drainage of Face Subcutaneous Tissue and Fascia, Open Approach (ICD-10-PCS; 2021-06-08)
PROC: 0J910ZZ Drainage of Face Subcutaneous Tissue and Fascia, Open Approach (ICD-10-PCS; 2021-06-12)
PROC: 02HV33Z Insertion of Infusion Device into Superior Vena Cava, Percutaneous Approach (ICD-10-PCS; 2021-06-15)
PROC: B548ZZA Ultrasonography of Superior Vena Cava, Guidance (ICD-10-PCS; 2021-06-15)
DX: A41.4 Sepsis due to anaerobes (principal); M72.6 Necrotizing fasciitis; J05.11 Acute epiglottitis with obstruction; J96.01 Acute respiratory failure with hypoxia; K12.2 Cellulitis and abscess of mouth; F10.239 Alcohol dependence with withdrawal, unspecified; L02.11 Cutaneous abscess of neck; E87.0 Hyperosmolality and hypernatremia; J39.0 Retropharyngeal and parapharyngeal abscess; Z20.822 Contact with and (suspected) exposure to COVID-19; I10 Essential (primary) hypertension; F12.10 Cannabis abuse, uncomplicated; M27.2 Inflammatory conditions of jaws; K02.9 Dental caries, unspecified; E87.6 Hypokalemia; F17.210 Nicotine dependence, cigarettes, uncomplicated; R00.1 Bradycardia, unspecified; R13.12 Dysphagia, oropharyngeal phase; T41.295A Adverse effect of other general anesthetics, initial encounter; R41.0 Disorientation, unspecified; T40.2X5A Adverse effect of other opioids, initial encounter; D52.9 Folate deficiency anemia, unspecified; Z90.09 Acquired absence of other part of head and neck; Z98.890 Other specified postprocedural states; Z78.1 Physical restraint status
CPT/HCPCS: 36415; 36416; 36569; 36600; 70491; 71045; 74018; 76705; 80048; 80053; 80202; 81001; 82607; 82746; 82805; 83605; 83735; 84100; 85025; 85610; 85652; 85730; 86140; 87040; 87070; 87076; 87102; 87205; 87206; 94002; 94003; 96365; 96367; 96375; A4217; C1751; J0295; J1100; J1644; J1650; J1885; J2001; J2060; J2185; J2250; J2270; J2405; J2543; J2704; J3010; J3370; J3411; J3475; J3480; J3490; J7030; J7042; J7120; Q0163; Q9967; S0028; U0002; U0003; U0005

== ENCOUNTER 2022-02-08 01:37 | Emergency (ER) | payer OTHER, SELFPAY ==
[2022-02-08 02:12] LABS: Hemoglobin 13.9 g/dL (14.0-18.0); Mean Corpuscular HGB CONC 34.9 g/dL (32.0-36.0); Mean Corpuscular Hemoglobin 41.7 pg (27.0-31.0); Mean Platelet Volume 6.7 fL (7.4-10.4); Platelet Count 141 thou/uL (130-400); RBC Distribution Width 15.1 % (11.5-14.5); Red Blood Cell (RBC) Count 3.34 mill/uL (4.70-6.10); White Blood Cell (WBC) Count 8.1 thou/uL (4.8-10.8)
[2022-02-08 02:19] LABS: #Basophils 0.1 thou/uL (0.0-0.2); #Eosinphils 0.1 thou/uL (0.0-0.7); #Lymphocytes 2.2 thou/uL (1.20-3.40); #Monocytes 0.3 thou/uL (0.11-0.59); #Neutrophils 5.5 thou/uL (1.40-6.50); %Basophils 0.8 % (0.0-1.0); %Eosinophils 0.8 % (0.0-10.0); %Lymphocytes 26.6 % (21.0-51.0); %Monocytes 3.7 % (0.0-10.0); %Neutrophils 68.1 % (42.0-75.0); MDiff Complete? YES; Macrocytosis SLIGHT = 6-15 cells (100X) (0-5/hpf); Platelet Morphology Comment Appears Adequate; Stomatocytes SLIGHT = 2-5 cells (100X) (0-1/hpf)
[2022-02-08 02:23] LABS: ALT (SGPT) 26 U/L (8-55); AST (SGOT) 58 U/L (5-34); Albumin 3.7 g/dL (3.5-5.0); Alkaline Phosphatase 101 U/L (40-110); Anion Gap 20 mmol/L (10-20); BUN (Urea Nitrogen) 9 mg/dL (8.9-20.6); Bilirubin, Total 1.6 mg/dL (0.2-1.2); Calc. Creatinine Clearance 0 mL/min (70-130); Calcium 8.9 mg/dL (7.8-10.44); Carbon Dioxide 23 mmol/L (22-29); Chloride 103 mmol/L (98-107); Globulin 2.4 g/dL (2.4-3.5); Glucose 86 mg/dL (70-105); Potassium 3.9 mmol/L (3.5-5.1); Protein, Total 6.1 g/dL (6.0-8.3); Sodium 142 mmol/L (136-145)
== END 2022-02-08 04:53 ==
LOC: ERS 01:37
DX: S01.511A Laceration without foreign body of lip, initial encounter (principal); F17.210 Nicotine dependence, cigarettes, uncomplicated; W01.198A Fall on same level from slipping, tripping and stumbling with subsequent striking against other object, initial encounter; Y92.009 Unspecified place in unspecified non-institutional (private) residence as the place of occurrence of the external cause
CPT/HCPCS: 36416; 40650; 70450; 70486; 72125; 80053; 85025; 93005

== ENCOUNTER 2022-02-15 09:02 | Emergency (ER) | payer SELFPAY | END 2022-02-15 09:57 | disposition home or self-care (01) | LOC: ERS 09:02 | DX: S01.511D Laceration without foreign body of lip, subsequent encounter (principal); F17.210 Nicotine dependence, cigarettes, uncomplicated ==